=== PATIENT | male | born 1965 | race Caucasian/White ===

== ENCOUNTER → 2016-04-24 | Outpatient (CLI) | payer BC | END | disposition home or self-care (01) | LOC: RADECHMAIN 12:03 | PROVIDERS: ATTEND Nurse Practitioner Family | DX: R00.1 Bradycardia, unspecified (principal); R00.0 Tachycardia, unspecified | CPT/HCPCS: 93225; 93226 ==

== ENCOUNTER → 2016-11-29 | Outpatient (CLI) | payer BC ==
--- NOTE | 2016-11-29 08:39 | US ---
EXAMINATION TYPE: US abdomen complete DATE OF EXAM: 11/29/2016 COMPARISON: NONE CLINICAL HISTORY: 51-year-old male R10.9 Unspecified abdominal pain. TECHNIQUE: Multiple sonographic images of the abdomen are obtained. FINDINGS: Liver Length: 17.5 cm Gallbladder Wall: 0.2 cm CBD: 3.2 mm Spleen: 11.7 cm Right Kidney: 10.0 x 5.6 x 5.7 cm Left Kidney: 11.1 x 5.5 x 5.0 cm Pancreas: Suboptimal visualization of the pancreatic tail secondary to shadowing from bowel gas. Vis ualized portions show no gross abnormality. Liver: Borderline in size, echogenic, and attenuating. A 1 cm hypoechoic area along the gallbladder fossa suggestive of focal fatty sparing. Gallbladder: wnl Evidence for sonographic Ramos's sign: No CBD: wnl Spleen: wnl Right Kidney: No hydronephrosis. Left Kidney: No hydronephrosis. Upper IVC: wnl Abd Aorta: Atherosclerotic changes visualized without aneurysm. IMPRESSION: Borderline hepatomegaly with moderate hepatic steatosis. Correlate with LFTs, lipid profile, and lloyd ent risk factors.
== END | disposition home or self-care (01) ==
LOC: RADUSWWP 07:51
PROVIDERS: ATTEND Family Medicine
DX: K76.0 Fatty (change of) liver, not elsewhere classified (principal); R16.0 Hepatomegaly, not elsewhere classified
CPT/HCPCS: 76700

== ENCOUNTER → 2019-05-01 | Outpatient (CLI) | payer BC ==
--- NOTE | 2019-05-01 15:43 | MR ---
EXAMINATION TYPE: MR knee RT wo con DATE OF EXAM: 05/01/2019 COMPARISON: Plain film 04/15/2019 HISTORY: rt knee pain TECHNIQUE: Multiplanar, multisequence images of the knee is performed without IV contrast. FINDINGS: MEDIAL MENISCUS: There is slight increased signal within the posterior horn medial meniscus compatibl e some internal derangement or early degenerative change. Anterior horn medial meniscus appears vale l. LATERAL MENISCUS: Posterior horn lateral meniscus is normal. There is some increased signal within th e substance of the anterior horn lateral meniscus compatible some internal derangement or degenerativ e change. No suspicious communication with an articular surface is evident. CRUCIATE LIGAMENTS: The anterior and posterior cruciate ligaments are intact and unremarkable. COLLATERAL LIGAMENTS: The medial collateral ligament and lateral collateral ligament complex are inta ct and unremarkable. EXTENSOR MECHANISM: Visualized quadriceps and patellar tendons are intact. EFFUSION: Small suprapatellar joint effusion is present. POPLITEAL CYST: No popliteal/valladares cyst. TRICOMPARTMENT SPACES: There is some narrowing of the medial compartment joint space. CARTILAGE: There is thinning of the articular cartilage of the medial compartment joint space. Mild t hinning of the tibial plateau articular cartilage of the lateral compartment may be present. There is loss of articular cartilage patellofemoral joint space. Small amount subchondral increased signal ma y be present in the axial plane of the posterior patella. BONE MARROW SIGNAL: No focal abnormal marrow signal is appreciated. OTHER: No additional significant abnormality is appreciated. IMPRESSION: 1. Mild Osteoarthritic degenerative change medial compartment right knee. 2. Mild to Moderate osteoarthritic degenerative change patellofemoral joint space. 3. Small joint effusion. 4. Mild degenerative change or internal derangement anterior horn lateral meniscus and posterior horn medial meniscus. 5. Osseous signal appears normal without contusion
== END | disposition home or self-care (01) ==
LOC: RADMRIMAIN 14:48
PROVIDERS: ATTEND Orthopaedic Surgery
DX: M17.11 Unilateral primary osteoarthritis, right knee (principal)

== ENCOUNTER → 2021-07-07 | Outpatient (CLI) | payer OTHER ==
--- NOTE | 2021-07-07 11:59 | MR ---
EXAMINATION TYPE: MR knee RT wo con DATE OF EXAM: 07/07/2021 COMPARISON: 05/01/2019 HISTORY: M25.561 Pain in right knee TECHNIQUE: Multiplanar, multisequence imaging of the right knee is performed without IV contrast. FINDINGS: MEDIAL MENISCUS: Anterior and posterior horns are intact without tear. LATERAL MENISCUS: Anterior and posterior horns are intact without tear. CRUCIATE LIGAMENTS: The anterior and posterior cruciate ligaments are intact and unremarkable. COLLATERAL LIGAMENTS: The medial collateral ligament and lateral collateral ligament complex are inta ct and unremarkable. EXTENSOR MECHANISM: Visualized quadriceps and patellar tendons are intact. EFFUSION: Small joint effusion noted. POPLITEAL CYST: Mccormack's cyst noted measuring 2.8 cm in craniocaudal dimension. TRICOMPARTMENT SPACES: Mild narrowing patellofemoral joint space and medial tibiofemoral joint space. CARTILAGE: Intact BONE MARROW SIGNAL: No focal abnormal marrow signal is appreciated. OTHER: Prepatellar soft tissue edema noted. IMPRESSION: 1. Mccormack's cyst has enlarged since prior study. 2. changes of osteoarthritis.
== END | disposition home or self-care (01) ==
LOC: RADMRIMAIN 11:14
PROVIDERS: ATTEND Orthopaedic Surgery
DX: M17.11 Unilateral primary osteoarthritis, right knee (principal); M71.21 Synovial cyst of popliteal space [Baker], right knee

== ENCOUNTER 2022-09-06 08:04 | Day surgery (SDC) | payer OTHER ==
[2022-09-06] MEDS ORDERED: LACTATED RINGERS 1,000 ML IV SCH (08:24)
[2022-09-06] MEDS ORDERED: LIDOCAINE 1% (10MG/ML) FOR IV START INTRADERMA PRN (08:24)
[2022-09-06 08:43] VITALS: TEMP 97.4
[2022-09-06 08:52] LABS: Glucose,Whole Blood 100 mg/dL (70-110)
[2022-09-06] MEDS ORDERED: PROPOFOL 10 MG/ML 20 ML VIAL IV ONE (09:00)
--- NOTE | 2022-09-06 09:05 | P.GSHP ---
History of Present Illness H&P Date: 09/06/22 Chief Complaint: Screening colonoscopy This a 57-year-old male presents today for screening colonoscopy. Patient states she's had some minimal rectal bleeding. His colonoscopy was about 6 years ago. Past Medical History Past Medical History: GERD/Reflux, Hyperlipidemia, Osteoarthritis (OA) Additional Past Medical History / Comment(s): intermittent bleeding with stools and lower left abd pain History of Any Multi-Drug Resistant Organisms: None Reported Past Surgical History: No Surgical Hx Reported, Orthopedic Surgery Additional Past Surgical History / Comment(s): colonoscopy,wisdom teeth screw to navicular bone of rt foot Past Anesthesia/Blood Transfusion Reactions: No Reported Reaction Additional Past Anesthesia/Blood Transfusion Reaction / Comment(s): never has had general anesthesia. NO PROBLEMS WITH MAC ANESTHESIA Smoking Status: Former smoker - Past Family History Mother Additional Family Medical History / Comment(s): heart problems,cabg Brother(s) Family Medical History: Myocardial Infarction ([place]) Additional Family Medical History / Comment(s): cardiac stents Father Family Medical History: Cancer Additional Family Medical History / Comment(s): vocal cords Medications and Allergies Home Medications Medication Instructions Recorded Confirmed Type Ibuprofen [Motrin] 200 - 400 mg PO Q6HR PRN 06/01/09/06/22 History Allergies Allergy/AdvReac Type Severity Reaction Status Date / Time No Known Allergies Allergy Verified 09/06/22 08:31 Surgical - Exam Vital Signs Temp Pulse Resp BP Pulse Ox 97.4 F L 60 16 144/73 98 09/06/22 08:42 09/06/22 08:42 09/06/22 08:42 09/06/22 08:42 09/06/22 08:42 - General well developed, well nourished, no distress - Eyes PERRL - ENT normal pinna - Neck no masses - Respiratory normal expansion - Cardiovascular Rhythm: regular - Abdomen Abdomen: soft, non tender Assessment and Plan Assessment: We'll perform screening colonoscopy.
--- NOTE | 2022-09-06 09:14 | P.OP ---
Date of Procedure: 09/06/22 Preoperative Diagnosis: Screening colonoscopy Postoperative Diagnosis: Right colon polyp Mild diverticulosis Procedure(s) Performed: Colonoscopy Anesthesia: MAC Surgeon: Alin Ramirez Pathology: other (Right colon polyp) Condition: stable Disposition: PACU Description of Procedure: The patient's placed on the endoscopy table in the lateral position. He received IV sedation. Digital rectal exam was performed. This revealed no abnormalities. The flexible colonoscope was then placed patient anus and passed throughout valve was visualized. The cecum appeared normal. In the right colon there was a small sessile polyp. This removed with the cold forcep. The remainder the ascending colon and transverse colon appeared normal. In the descending and sigmoid colon there were mild diverticular changes. Scope was then brought back the rectum all. Open was then withdrawn from the patient.
--- NOTE | 2022-09-06 09:16 | P.GSHP ---
History of Present Illness H&P Date: 09/06/22 Chief Complaint: Screening colonoscopy This a 57-year-old male who presents today for screening colonoscopy. Patient denies a significant GI complaints. Past Medical History Past Medical History: GERD/Reflux, Hyperlipidemia, Osteoarthritis (OA) Additional Past Medical History / Comment(s): intermittent bleeding with stools and lower left abd pain History of Any Multi-Drug Resistant Organisms: None Reported Past Surgical History: No Surgical Hx Reported, Orthopedic Surgery Additional Past Surgical History / Comment(s): colonoscopy,wisdom teeth screw to navicular bone of rt foot Past Anesthesia/Blood Transfusion Reactions: No Reported Reaction Additional Past Anesthesia/Blood Transfusion Reaction / Comment(s): never has had general anesthesia. NO PROBLEMS WITH MAC ANESTHESIA Smoking Status: Former smoker - Past Family History Mother Additional Family Medical History / Comment(s): heart problems,cabg Brother(s) Family Medical History: Myocardial Infarction ([place]) Additional Family Medical History / Comment(s): cardiac stents Father Family Medical History: Cancer Additional Family Medical History / Comment(s): vocal cords Medications and Allergies Home Medications Medication Instructions Recorded Confirmed Type Ibuprofen [Motrin] 200 - 400 mg PO Q6HR PRN 06/01/14 09/06/22 History Allergies Allergy/AdvReac Type Severity Reaction Status Date / Time No Known Allergies Allergy Verified 09/06/22 08:31 Surgical - Exam Vital Signs Temp Pulse Resp BP Pulse Ox 97.4 F L 60 16 144/73 98 09/06/22 08:42 09/06/22 08:42 09/06/22 08:42 09/06/22 08:42 09/06/22 08:42 - General well developed, well nourished, no distress - Eyes PERRL - ENT normal pinna - Neck no masses - Cardiovascular Rhythm: regular - Abdomen Abdomen: soft, non tender Assessment and Plan Assessment: We'll perform screening colonoscopy.
[2022-09-06 09:52] VITALS: BP 126/78; PULSE 77; RESP 20
== END 2022-09-06 10:17 | disposition home or self-care (01) ==
LOC: ORWHC2ENDO 08:04
PROVIDERS: ATTEND Surgery
DX: Z12.11 Encounter for screening for malignant neoplasm of colon (principal); D12.6 Benign neoplasm of colon, unspecified; K57.30 Diverticulosis of large intestine without perforation or abscess without bleeding; E78.5 Hyperlipidemia, unspecified; K21.9 Gastro-esophageal reflux disease without esophagitis; M19.90 Unspecified osteoarthritis, unspecified site; Z87.891 Personal history of nicotine dependence; Z88.6 Allergy status to analgesic agent; Z79.899 Other long term (current) drug therapy
CPT/HCPCS: 88305; 45380; J2704

== ENCOUNTER 2023-05-02 08:24 | Day surgery (SDC) | payer OTHER ==
--- NOTE | 2023-05-02 07:04 | P.GSHP ---
History of Present Illness H&P Date: 05/02/23 CHIEF COMPLAINT: GERD HISTORY OF PRESENT ILLNESS: The patient is a 57-year-old male who presents reports gastroesophageal reflux disease. Upper endoscopy was offered for further evaluation and management. PAST MEDICAL HISTORY: Please see list. PAST SURGICAL HISTORY: Please see list. MEDICATIONS: Please see list. ALLERGIES: Please see list. SOCIAL HISTORY: No illicit drug use FAMILY HISTORY: No reports of Crohn disease or ulcerative colitis. REVIEW OF ORGAN SYSTEMS: CONSTITUTIONAL: No reports of fevers or chills. GI: Denies any blood in stools or constipation. PHYSICAL EXAM: VITAL SIGNS: Stable GENERAL: Well-developed and pleasant in no acute distress. HEENT: No scleral icterus. Extraocular movements grossly intact. Moist buccal mucosa. NECK: Supple without lymphadenopathy. CHEST: Unlabored respirations. Equal bilateral excursions. CARDIOVASCULAR: Regular rate and rhythm. Distal 2+ pulses. ABDOMEN: Soft, nondistended. MUSCULOSKELETAL: No clubbing, cyanosis, or edema. ASSESSMENT: 1. Gastroesophageal reflux disease PLAN: 1. Recommend proceeding with an upper endoscopy Past Medical History Past Medical History: GERD/Reflux, Hyperlipidemia, Osteoarthritis (OA) Additional Past Medical History / Comment(s): occasional bleeding with stools and mid abd especially if not eating regularly. umbilical hernia History of Any Multi-Drug Resistant Organisms: None Reported Past Surgical History: Orthopedic Surgery Additional Past Surgical History / Comment(s): ,colonoscopy,wisdom teeth, screw to navicular bone of rt foot Past Anesthesia/Blood Transfusion Reactions: No Reported Reaction Additional Past Anesthesia/Blood Transfusion Reaction / Comment(s): NO PROBLEMS WITH MAC ANESTHESIA Smoking Status: Former smoker - Past Family History Mother Additional Family Medical History / Comment(s): heart problems,cabg Brother(s) Family Medical History: Myocardial Infarction ([place]) Additional Family Medical History / Comment(s): cardiac stents Father Family Medical History: Cancer Additional Family Medical History / Comment(s): vocal cords Medications and Allergies Home Medications Medication Instructions Recorded Confirmed Type Ibuprofen [Motrin] 200 - 400 mg PO Q6HR PRN 06/01/14 04/30/23 History Rosuvastatin Calcium 20 mg PO HS 04/30/23 04/30/23 History Unk Multi Vitamin 1 tab PO DAILY 04/30/23 04/30/23 History Allergies Allergy/AdvReac Type Severity Reaction Status Date / Time No Known Allergies Allergy Verified 04/30/23 13:27
[~2023-05-02 08:24] MED LIST: LIDOCAINE 1% (10MG/ML) FOR IV START INTRADERMA PRN
[2023-05-02 08:54] VITALS: TEMP 97.3
[2023-05-02] MEDS: LACTATED RINGERS 1,000 ML IV SCH (08:55)
[2023-05-02] MEDS ORDERED: PROPOFOL 10 MG/ML 20 ML VIAL IV ONE (09:45)
[2023-05-02] MEDS ORDERED: LIDOCAINE 1% INJ 10MG/ML (20 ML MDV) ONE (09:45)
--- NOTE | 2023-05-02 10:23 | P.PCN ---
Date of Procedure: 05/02/23 Description of Procedure: PREOPERATIVE DIAGNOSIS: Gastroesophageal reflux disease. POSTOPERATIVE DIAGNOSIS: Gastroesophageal reflux disease. Gastritis. Gastric polyps Erosive esophagitis OPERATION: Esophagogastroduodenoscopy with biopsies along esophagus antrum and duodenum SURGEON: Cathy Barnes MD ANESTHESIA: MAC. INDICATIONS: The patient is a 45-year-old female who presents with reflux disease. Benefits and risks of the procedure were described. Informed consent was obtained. DESCRIPTION: The patient was brought into the endoscopy suite and laid in the left lateral decubitus position. An Olympus gastroscope was passed along the posterior oropharynx down to the distal esophagus where the squamocolumnar junction was encountered at 40 cm from the incisors. The stomach was entered and bile reflux was found. Additional findings are listed below. Biopsies with cold forceps were obtained of the antrum. The first through third portion of the duodenum was examined. Retroflexion of the scope confirmed Hill grade 2 lower esophageal valve. The squamocolumnar junction demonstrated LA grade B erosive esophagitis. The stomach was desufflated. The patient tolerated the procedure well. FINDINGS: Squamocolumnar junction 40 cm from the incisors. Diaphragmatic hiatus at 40 cm. Hill grade 2 lower esophageal valve LA grade B erosive esophagitis with moderate bile reflux along the esophagus Biopsies obtained of the duodenum. Chronic gastritis with biopsies obtained. RECOMMENDATIONS: Upper endoscopy as needed. Plan - Discharge Summary Discharge Rx Participant: No New Discharge Prescriptions: No Action Ibuprofen [Motrin] 200 - 400 mg PO Q6HR PRN PRN Reason: Pain Rosuvastatin Calcium 20 mg PO HS Unk Multi Vitamin 1 tab PO DAILY Discharge Medication List Ibuprofen [Motrin] 200 - 400 mg PO Q6HR PRN 06/01/14 [History] Rosuvastatin Calcium 20 mg PO HS 04/30/23 [History] Unk Multi Vitamin 1 tab PO DAILY 04/30/23 [History]
[2023-05-02 10:31] VITALS: BP 122/84
[2023-05-02 11:04] VITALS: PULSE 78; RESP 18
== END 2023-05-02 11:02 | disposition home or self-care (01) ==
LOC: ORWHC2ENDO 08:24
PROVIDERS: ATTEND Surgery Plastic and Reconstructive Surgery
DX: K21.00 Gastro-esophageal reflux disease with esophagitis, without bleeding (principal); K31.7 Polyp of stomach and duodenum; K29.50 Unspecified chronic gastritis without bleeding; K22.10 Ulcer of esophagus without bleeding; M19.90 Unspecified osteoarthritis, unspecified site; E78.5 Hyperlipidemia, unspecified; Z87.891 Personal history of nicotine dependence; Z82.49 Family history of ischemic heart disease and other diseases of the circulatory system; Z79.899 Other long term (current) drug therapy
CPT/HCPCS: 88305; 43239; J2001; J2704

== ENCOUNTER → 2023-05-03 | Outpatient (CLI) | payer OTHER ==
--- NOTE | 2023-05-03 17:24 | US ---
EXAMINATION TYPE: US thyroid st tissue head/neck DATE OF EXAM: 05/03/2023 COMPARISON: NONE CLINICAL INDICATION: Male, 57 years old with history of R22.1 LOCALIZED SWELLING, MASS AND LUMP, NECK ; Lump x 1 year- no pain or change in size, no injury, no history cancer/chemo/radiation TECHNIQUE: FINDINGS: Hyperechoic area at AOC = 2.9 x 1.1 x 2.8 cm There is a hyperechoic oval in the region of the palpable abnormality could be a prominent lymph node . Consider CT Additional evaluation. The typical hilum is not identified. Other etiologies should be considered. IMPRESSION: 1. Suspected enlarged subcutaneous lymph node. Other etiologies not excluded. CT recommended for zeeshan tional evaluation.
== END | disposition home or self-care (01) ==
LOC: RADUSWWP 08:29
PROVIDERS: ATTEND Surgery Plastic and Reconstructive Surgery
DX: R22.1 Localized swelling, mass and lump, neck (principal)
CPT/HCPCS: 76536

== ENCOUNTER 2023-05-09 13:09 | Observation (INO) | payer OTHER ==
[2023-05-03 10:55] VITALS: BMI 32.3
[~2023-05-09 13:09] MED LIST changes: +HYDROmorphone 0.5 MG/0.5 ML SYRINGE IVP PRN; -LIDOCAINE 1% (10MG/ML) FOR IV START INTRADERMA PRN; +ONDANSETRON 4 MG/2 ML VIAL IVP PRN
--- NOTE | 2023-05-09 13:24 | P.GSHP ---
History of Present Illness H&P Date: 05/09/23 CHIEF COMPLAINT: Ventral hernia HISTORY OF PRESENT ILLNESS: The patient is a 57-year-old male presents with a history of swelling and pain along the abdomen from a hernia of the abdomen. Symptoms have been present for over 6 months. Now he presents for surgical intervention. PAST MEDICAL HISTORY: Please see list. PAST SURGICAL HISTORY: Please see list. MEDICATIONS: Please see list. ALLERGIES: Please see list. SOCIAL HISTORY: No illicit drug use FAMILY HISTORY: No reports of Crohn disease or ulcerative colitis. REVIEW OF ORGAN SYSTEMS: CONSTITUTIONAL: Denies any fever or chills. Denies recent weight loss or weight gain. HEENT: Denies any trouble with vision, hearing or nosebleeds. No difficulty swallowing. LYMPHATIC: The patient denies any lumps and bumps around the neck. ENDOCRINE: Denies any thyroid disorders. Denies any blood sugar glucose intolerance. RESPIRATORY: Denies pneumonia. Denies any troubles with breathing or dyspnea on exertion. CARDIOVASCULAR: Denies any chest pain, palpitations, or recent heart attacks. GASTROINTESTINAL: Denies heart burn, constipation or bright red blood per rectum. GENITOURINARY: Denies any blood in urine or increased urinary frequency. MUSCULOSKELETAL: Denies any back pain, stiffness, joint arthritis. NEUROLOGIC: Denies any numbness or tingling along the distal extremities. No seizure disorders or headaches. PSYCHIATRIC: Denies depression or suidical ideation. HEMATOLOGIC: Denies any abnormal bleeding or bruising. BREASTS: Denies any breast lumps, pain or nipple discharge. PHYSICAL EXAM: GENERAL: Well-developed pleasant male in no acute distress. HEENT: No scleral icterus. Extraocular movements grossly intact. Moist buccal mucosa. NECK: Supple without lymphadenopathy. CHEST: Unlabored respirations. Equal bilateral excursions. CARDIOVASCULAR: Regular rate and rhythm. Distal 2+ pulses. ABDOMEN: Soft, nondistended. Palpable defect of the abdomen. No peritoneal signs. MUSCULOSKELETAL: No clubbing, cyanosis, or edema. SKIN: Well perfused. PSYCH: Alert and oriented to self, place and time ASSESSMENT: 1. Ventral hernia PLAN: 1. Recommend proceeding with robotic ventral hernia repair with mesh. 2. Benefits and risks of surgical intervention was discussed including possibility of open technique. 3. DVT prophylaxis. 4. Antibiotic prophylaxis. 5. Non narcotic pain management including abdominal wall block described 6. Blood sugar glucose described. 7. Weight loss management described. Past Medical History Past Medical History: GERD/Reflux, Hyperlipidemia, Osteoarthritis (OA) Additional Past Medical History / Comment(s): occasional bleeding with stools and mid abd especially if not eating regularly. umbilical hernia History of Any Multi-Drug Resistant Organisms: None Reported Past Surgical History: Orthopedic Surgery Additional Past Surgical History / Comment(s): ,colonoscopy,wisdom teeth, screw to navicular bone of rt foot Past Anesthesia/Blood Transfusion Reactions: No Reported Reaction Additional Past Anesthesia/Blood Transfusion Reaction / Comment(s): NO PROBLEMS WITH MAC ANESTHESIA Past Alcohol Use History: Daily Additional Past Alcohol Use History / Comment(s): quit smoking 1998, smoked for approx 10yrs. 2 drinks per day, none lately - Past Family History Mother Additional Family Medical History / Comment(s): heart problems,cabg Brother(s) Family Medical History: Myocardial Infarction ([place]) Additional Family Medical History / Comment(s): cardiac stents Father Family Medical History: Cancer Additional Family Medical History / Comment(s): vocal cords Medications and Allergies Home Medications Medication Instructions Recorded Confirmed Type Ibuprofen [Motrin] 200 - 400 mg PO Q6HR PRN 06/01/14 05/03/23 History Rosuvastatin Calcium 20 mg PO HS 04/30/23 05/03/23 History Omeprazole [PriLOSEC] 40 mg PO DAILY #14 cap 05/02/23 05/03/23 Rx Multivit,Calc,Min/FA/K1/Lycop 1 each PO DAILY 05/03/23 05/03/23 History [One-A-Day Men's Complete Tab] Allergies Allergy/AdvReac Type Severity Reaction Status Date / Time No Known Allergies Allergy Verified 05/03/23 10:19
[2023-05-09] MEDS: LACTATED RINGERS 1,000 ML IV SCH (14:18)
[2023-05-09] MEDS: ACETAMINOPHEN TAB 500 MG TAB PO PRN (14:26)
[2023-05-09] MEDS: MELOXICAM 7.5 MG TAB PO PRN (14:27)
[2023-05-09] MEDS: TAMSULOSIN 0.4 MG CAP.ER.24H PO STA (14:27)
[2023-05-09] MEDS: DEXAMETHASONE SOD PHOSPHATE 4 MG/ML 1 ML VIAL IV ONE (14:52)
[2023-05-09] MEDS: ONDANSETRON 4 MG/2 ML VIAL IVP ONE (14:52)
[2023-05-09 15:05] LABS: ALT 30 U/L (4-49); AST 38 U/L (17-59); African American GFR (CKD) >90 (>60 ml/min/1.73 sqM); Albumin 4.7 g/dL (3.5-5.0); Alkaline Phosphatase 71 U/L (38-126); Anion Gap 12 mmol/L; Blood Urea Nitrogen 22 mg/dL (9-20); Calcium 9.6 mg/dL (8.4-10.2); Carbon Dioxide 21 mmol/L (22-30); Chloride 110 mmol/L (98-107); Glucose 86 mg/dL (74-99); Non-African American GFR(CKD) >90 (>60 ml/min/1.73 sqM); Sodium 143 mmol/L (137-145); Total Bilirubin 0.9 mg/dL (0.2-1.3); Total Protein 7.6 g/dL (6.3-8.2)
[2023-05-09 15:06] LABS: Potassium 4.6 mmol/L (3.5-5.1)
[2023-05-09] MEDS: MIDAZOLAM 2 MG/2 ML VIAL IVP ONE (16:33)
[2023-05-09] MEDS: fentaNYL (PF) 50 MCG/ML 2 ML AMP IVP ONE (16:33)
[2023-05-09] MEDS: HEPARIN SODIUM,PORCINE 5,000 UNIT/ML 1 ML VIAL SQ PRN (16:48)
[2023-05-09] MEDS ORDERED: SUCCINYLCHOLINE CHLORIDE 200 MG/10 ML VIAL IV ONE (17:00)
[2023-05-09] MEDS ORDERED: ROPIVACAINE 5 MG/ML 30 ML VIAL ONE (17:00)
[2023-05-09] MEDS ORDERED: ROCURONIUM 10 MG/ML (5 ML VIAL) IV ONE (17:00)
[2023-05-09] MEDS ORDERED: LIDOCAINE 1% INJ 10MG/ML (20 ML MDV) ONE (17:00)
[2023-05-09] MEDS ORDERED: fentaNYL (PF) 50 MCG/ML 2 ML AMP ONE (17:00)
[2023-05-09] MEDS ORDERED: DEXAMETHASONE SOD PHOSPHATE 4 MG/ML 1 ML VIAL ONE (17:00)
[2023-05-09] MEDS ORDERED: GLYCOPYRROLATE 0.2 MG/ML 2 ML VIAL ONE (17:00)
[2023-05-09] MEDS ORDERED: NEOSTIGMINE 1 MG/ML 10 ML VIAL ONE (17:00)
[2023-05-09] MEDS ORDERED: PROPOFOL 10 MG/ML 20 ML VIAL IV ONE (17:00)
[2023-05-09] MEDS ORDERED: SODIUM CHLORIDE 0.9% (PF) 10 ML VIAL ONE (17:00)
--- NOTE | 2023-05-09 17:16 | P.ANPRN ---
Procedure Note - Anesthesia - Nerve Block Performed Bilateral Erector Spinae Single Time Out Performed: Yes Date of Procedure: 05/09/23 Procedure Start Time: 16:33 Procedure Stop Time: 16:38 Location of Patient: PreOp Indication: Acute Post-Operative Pain, Requested by Surgeon Sedation Type: Sedate with meaningful contact maintained Preparation: Sterile Prep Position: Prone Needle Types: Pajunk Needle Gauge: 21 Ultrasound used to visualize needle placement: Yes Ultrasound used to observe medication spread: Yes Injectate: 0.5% Ropivacaine (see comment for volume) (Ropivacaine 0.5% 15 ml + 15 ml NS + 4 mg Dexamethasone per side) Blood Aspirated: No Pain Paresthesia on Injection Noted: No Resistance on Injection: Normal Image Stored and Saved: Yes Events: Uneventful and Well Tolerated
[2023-05-09] MEDS: LIDOCAINE 2%-EPI 1:100,000 20 ML VIAL SQ ONE (17:27)
--- NOTE | 2023-05-09 18:15 | P.OP ---
Date of Procedure: 05/09/23 Description of Procedure: SURGEON: CATHY BARNES MD PREOPERATIVE DIAGNOSES: 1. Initial incarcerated umbilical hernia, 3-cm 2. Gastroesophageal reflux disease 3. Obesity due to excess calories, BMI 32.7 4. Hyperlipidemia POSTOPERATIVE DIAGNOSES: 1. Initial incarcerated umbilical hernia, 3-cm 2. Gastroesophageal reflux disease 3. Obesity due to excess calories, BMI 32.7 4. Hyperlipidemia OPERATION: 1. Robotic-assisted da Naun Xi laparoscopic repair of initial incarcerated umb ilical hernia with mesh, ventralight ST mesh 11.4 cm Anesthesia: GETA, regional, local Estimated Blood Loss (ml): 5 Pathology: 1. Incarcerated umbilical hernia defect COMPLICATIONS: None. Operative Findings: 1. Umbilical hernia defect 1-cm 2. Fascia repaired using #1 V-lock suture INDICATIONS: The patient is a 57-year-old male who presents with a personal history of multiple abdominal wall hernias. Surgical intervention with laparoscopic versus robotic and open techniques were reviewed. Placement of mesh was also reviewed. Benefits and risks were thoroughly described. Informed conse nt was obtained. DESCRIPTION OF PROCEDURE: The patient was brought into the operating room and laid in supine position. After general induction, the abdomen had been prepped and draped in standard sterile fashion. Ioban draping was also placed. Prior to incision, a timeout protocol was confirmed with surgical team regarding the patient's name including procedures to be performed. The robot was primed prior to the procedure. A field block using local anesthetic was placed along hernia site including the proposed port sites. Initial incision was made with an #11 blade along the left upper quadrant. A 0 degree 5 mm laparoscopic trocar entry was performed and insufflated. Three 8 mm ports were placed along the left lateral abdominal wall under direct localization after exchanging the 5-mm for an 8 mm port. Placements of the ports were 15 cm from the target anatomy and 10 cm apart. An accessory 12 mm port was placed at the left upper quadrant for exchange of mesh including sutures. [employer] robot was previously primed, prepped and draped then docked from the right side of the patient onto the left side of the patient. I then sat at the robot [employer] console where working arms of the robot including Bovie cautery connected to robotic scissors, needle fleet driver, and graspers placed by the assistant manager retail. Incarcerated preperitoneal fascial defect was found: Umbilical hernia defect 1 x 1 cm. The incarcerated contents were reduced as the peritoneal fat was cleaned from the abdominal wall. Next, hemostasis was checked with cautery. The hernia defects were oversewn using #1 nonabsorbable V-lock suture with fascial imbrication x 3. Mesh repair was avoided due to the very small defect. A final endoscopic imaging was obtained. All instruments and pneumoperitoneum were evacuated from the abdominal cavity. The da Naun Xi robot was undocked from the patient. I re-scrubbed into the case for closure of incisions. The fascia of the 12-mm port was probed and less than 8-mm in size. The incisions were reapproximated using 4-0 Monocryl in an interrupted subcuticular fashion. Liquid glue was applied to the skin after cleansing the skin with normal saline and dilute hydrogen peroxide. An abdominal binder was placed. An umbilical dressing using cotton balls and Tegaderm was placed prior. At the end of the procedure, needle, sponge, and instrument count had been verified correct by surgical scrub technologist. The patient was taken to the postanesthesia care unit in stable condition. Plan - Discharge Summary Discharge Rx Participant: No New Discharge Prescriptions: Continue Rosuvastatin Calcium 20 mg PO HS Omeprazole [PriLOSEC] 40 mg PO DAILY #14 cap Multivit,Calc,Min/FA/K1/Lycop [One-A-Day Men's Complete Tab] 1 each PO DAILY Discontinued Ibuprofen [Motrin] 200 - 400 mg PO Q6HR PRN PRN Reason: Pain Discharge Medication List Rosuvastatin Calcium 20 mg PO HS 04/30/23 [History] Omeprazole [PriLOSEC] 40 mg PO DAILY #14 cap 05/02/23 [Rx] Multivit,Calc,Min/FA/K1/Lycop [One-A-Day Men's Complete Tab] 1 each PO DAILY 05/03/23 [History] Follow up Appointment(s)/Referral(s): Cathy Barnes MD [STAFF PHYSICIAN] - 05/14/23 11:00 am Patient Instructions/Handouts: *Surgery [facility] - (Anesthesia) Discharge Instructions Outpatient Surgery Discharge Disposition: HOME SELF-CARE
[2023-05-09] MEDS ORDERED: HYDROmorphone 1 MG/ML 1 ML SYRINGE IVP PRN (19:23)
[2023-05-09] MEDS: SODIUM CHLORIDE 0.9% 1,000 ML IV ONE (19:30)
[2023-05-09] MEDS: KETOROLAC 15 MG/ML 1 ML VIAL IVP PRN (21:01)
[2023-05-09] MEDS: SODIUM CHLORIDE 0.9% 1,000 ML IV SCH (22:07)
--- NOTE | 2023-05-10 08:16 | XR ---
EXAMINATION TYPE: XR chest 1V portable DATE OF EXAM: 05/10/2023 HISTORY: Shortness of breath. COMPARISON: None. TECHNIQUE: Single view of the chest is submitted. FINDINGS: Demonstrated are scattered senescent parenchymal change. Left basilar linear atelectasis or developing infiltrate. Follow-up advised. The heart is stable. Hilar and mediastinal structures are within normal limits. Degenerative changes are seen of the dorsal spine. IMPRESSION: 1. Left basilar linear atelectasis or developing infiltrate. Follow-up advised.
[2023-05-10 08:20] VITALS: RESP 20
[2023-05-10] MEDS: IPRATROPIUM-ALBUTEROL 3 ML NEB INHALATION SCH (09:58)
--- NOTE | 2023-05-10 12:04 | CT ---
Exam: CT Angiography of the Chest. Date: 05/10/2023. Comparison: None History: Postop ventral hernia. Technique: CT examination of the chest was performed following the intravenous administration of 180 mL of Isovue 300. The bolus was given twice as the bolus did not trigger the scan the first time. CT dose lowering techniques were used, to include: automated exposure control, adjustment for patient si ze, and/or use of iterative reconstruction. FINDINGS: Mediastinum and [place]: There is no axillary, mediastinal or hilar lymphadenopathy. Pleural and Pericardial spaces: There are no pleural or pericardial effusions. Upper Abdomen: There is severe diffuse decreased attenuation of the liver compatible fatty liver infi ltration. Small right renal cyst is seen. The visualized upper abdomen otherwise appears unremarkable . Cardiovascular: The thoracic aorta is normal in size without evidence of aneurysm or dissection. Pulmonary Artery: There are no filling defects in the pulmonary arteries. Lung Parenchyma and Airways: There are some bands of opacity lower lobes bilaterally which are favore d to be atelectasis. Pneumonia would be difficult to exclude. The lungs otherwise appear clear. Bones: No fracture or aggressive osseous lesion. IMPRESSION: 1. No evidence of pulmonary embolism. 2. No evidence of thoracic aortic aneurysm or dissection. 3. Probable atelectatic changes in the lower lobes bilaterally with pneumonia also a possibility. 4. Hepatic steatosis.
--- NOTE | 2023-05-10 12:38 | P.CNPUL ---
History of Present Illness Consult date: 05/10/23 Requesting physician: Cathy Barnes Reason for consult: hypoxemia Chief complaint: Ventral hernia History of present illness: This is a very pleasant 57-year-old male patient with a known history of hypertension, gastroesophageal reflux disease, osteoarthritis, ventral hernia. He was brought in yesterday electively and had undergone a robotic assisted incarcerated umbilical hernia repair with mesh. He tolerated the procedure well however he remained somewhat hypoxic and we are consulted for the same. He is seen today in consultation on the regular medical floor. He is sitting up in bed. Awake and alert in no acute distress. He is maintaining O2 saturations at 93, 94% on 2 L/min per nasal cannula. He has been afebrile. Hemodynamically stable. He has no prior history of pulmonary issues. No asthma. Quit smoking many years ago. No inhalers in the outpatient setting. Sodium 143. Potassium 4.6. Bicarb 21. BUN 22. Creatinine 0.72. Chest x-ray revealed some left bas ilar linear atelectasis. Review of Systems REVIEW OF SYSTEMS: CONSTITUTIONAL: Denies any recent significant weight loss or weight gain. EYES: Denies change in vision. EARS, NOSE, MOUTH, THROAT: Denies headaches, denies sore throat. CARDIOVASCULAR: Denies chest pain, palpitations or syncopal episodes. RESPIRATORY: Denies shortness of breath, cough, congestion or hemoptysis. GASTROINTESTINAL: Positive for abdominal hernia GENITOURINARY: Denies hematuria, denies infections. MUSKULOSKELETAL: Denies pain, denies swelling. INTEGUMENTARY: Denies rash, denies eczema. NEUROLOGICAL: Denies recent memory loss, no recent seizure activity. PSYCHIATRIC: Denies anxiety, denies depression. HEMATOLOGIC/LYMPHATIC: Denies anemia, denies enlarged lymph nodes. Past Medical History Past Medical History: GERD/Reflux, Hyperlipidemia, Osteoarthritis (OA) Additional Past Medical History / Comment(s): occasional bleeding with stools and mid abd especially if not eating regularly. umbilical hernia History of Any Multi-Drug Resistant Organisms: None Reported Past Surgical History: Orthopedic Surgery Additional Past Surgical History / Comment(s): ,colonoscopy,wisdom teeth, screw to navicular bone of rt foot, umbilical hernia repair Past Anesthesia/Blood Transfusion Reactions: No Reported Reaction Additional Past Anesthesia/Blood Transfusion Reaction / Comment(s): Low SpO2 after surgery required overnight stay and high flow oxygen Past Psychological History: No Psychological Hx Reported Smoking Status: Former smoker Past Alcohol Use History: Daily Additional Past Alcohol Use History / Comment(s): quit smoking 1998, smoked for approx 10yrs. 3-8 drinks 3 times a week. Last drink was 05/08/23 Past Drug Use History: None Reported - Past Family History Mother Additional Family Medical History / Comment(s): heart problems,cabg Brother(s) Family Medical History: Myocardial Infarction ([place]) Additional Family Medical History / Comment(s): cardiac stents Father Family Medical History: Cancer Additional Family Medical History / Comment(s): vocal cords Medications and Allergies Home Medications Medication Instructions Recorded Confirmed Type Rosuvastatin Calcium 20 mg PO HS 04/30/23 05/09/23 History Omeprazole [PriLOSEC] 40 mg PO DAILY #14 cap 05/02/23 05/09/23 Rx Multivit,Calc,Min/FA/K1/Lycop 1 each PO DAILY 05/03/23 05/09/23 History [One-A-Day Men's Complete Tab] Acetaminophen Tab [Tylenol Tab] 1,000 mg PO Q6HR PRN #30 tablet 05/09/23 Rx Cyclobenzaprine [Flexeril] 10 mg PO TID #30 tab 05/09/23 Rx Ibuprofen [Motrin] 600 mg PO Q8HR PRN #30 tab 05/09/23 Rx Simethicone [Gas-X] 125 mg PO AC-TID PRN #20 capsule 05/09/23 Rx Allergies Allergy/AdvReac Type Severity Reaction Status Date / Time No Known Allergies Allergy Verified 05/09/23 14:11 Physical Exam Vitals: Vital Signs Temp Pulse Pulse Pulse Pulse Pulse Pulse 05/10/23 11:54 74 05/10/23 11:42 77 87 05/10/23 09:56 05/10/23 08:22 05/10/23 07:53 05/10/23 07:30 05/10/23 07:27 97.5 F L 67 05/10/23 02:00 98.7 F 90 05/09/23 21:55 77 05/09/23 21:40 94 05/09/23 21:25 91 05/09/23 21:13 05/09/23 21:10 100 05/09/23 20:55 89 05/09/23 20:40 98 05/09/23 20:30 05/09/23 20:25 85 05/09/23 20:10 98.7 F 95 05/09/23 19:45 86 05/09/23 19:30 91 05/09/23 19:12 86 05/09/23 18:57 77 05/09/23 18:42 74 05/09/23 18:27 75 05/09/23 18:12 97.4 F L 95 05/09/23 16:47 75 05/09/23 14:23 98.0 F 65 Pulse Pulse Resp BP BP Pulse Ox Pulse Ox 05/10/23 11:54 05/10/23 11:42 79 74 93 L 05/10/23 09:56 94 L 05/10/23 08:22 93 L 05/10/23 07:53 93 L 05/10/23 07:30 93 L 05/10/23 07:27 20 136/84 91 L 05/10/23 02:00 16 127/65 92 L 05/09/23 21:55 127/65 92 L 05/09/23 21:40 128/67 91 L 05/09/23 21:25 129/75 89 L 05/09/23 21:13 18 95 05/09/23 21:10 134/78 88 L 05/09/23 20:55 133/84 89 L 05/09/23 20:40 136/84 85 L 05/09/23 20:30 16 05/09/23 20:25 148/84 92 L 05/09/23 20:10 18 148/84 92 L 05/09/23 19:45 18 123/67 91 L 05/09/23 19:30 18 117/69 92 L 05/09/23 19:12 18 142/69 90 L 05/09/23 18:57 18 130/66 92 L 05/09/23 18:42 18 127/62 93 L 05/09/23 18:27 18 142/70 92 L 05/09/23 18:12 15 162/75 94 L 05/09/23 16:47 16 149/88 95 05/09/23 14:23 18 182/86 94 L Pulse Ox Pulse Ox Pulse Ox 05/10/23 11:54 05/10/23 11:42 91 L 92 L 90 L 05/10/23 09:56 05/10/23 08:22 05/10/23 07:53 05/10/23 07:30 05/10/23 07:27 05/10/23 02:00 05/09/23 21:55 05/09/23 21:40 05/09/23 21:25 05/09/23 21:13 05/09/23 21:10 05/09/23 20:55 05/09/23 20:40 05/09/23 20:30 05/09/23 20:25 05/09/23 20:10 05/09/23 19:45 05/09/23 19:30 05/09/23 19:12 05/09/23 18:57 05/09/23 18:42 05/09/23 18:27 05/09/23 18:12 05/09/23 16:47 05/09/23 14:23 Intake and Output 05/09/23 05/10/23 05/10/23 22:59 06:59 14:59 Intake Total 1350 Output Total 10 Balance 1340 Intake: IV 750 Oral 600 Output: Estimated Blood Loss 10 Other: Voiding Method Toilet # Voids 3 Weight 103.3 kg GENERAL EXAM: Alert, very pleasant 57-year-old male, on 2 L nasal cannula, comfortable in no apparent distress. HEAD: Normocephalic. EYES: Normal reaction of pupils, equal size. NOSE: Clear with pink turbinates. THROAT: No erythema or exudates. NECK: No masses, no JVD. CHEST: No chest wall deformity. LUNGS: Equal air entry with no crackles, wheeze, rhonchi or dullness. CVS: S1 and S2 normal with no audible murmur, regular rhythm. ABDOMEN: Abdominal binder in place, normal bowel sounds, no guarding or rigidity. SPINE: No scoliosis or deformity SKIN: No rashes CENTRAL NERVOUS SYSTEM: No focal deficits, tone is normal in all 4 extremities. EXTREMITIES: There is no peripheral edema. No clubbing, no cyanosis. Peripheral pulses are intact. Results - Laboratory Findings CBC and BMP: 05/09/23 14:47 Abnormal lab findings: Abnormal Labs 05/09/23 14:47 Chloride 110 H Carbon Dioxide 21 L BUN 22 H - Diagnostic Findings Chest x-ray: image reviewed Assessment and Plan Assessment: Incarcerated umbilical hernia, status post robotic assisted repair with mesh. Postoperative day #1 Acute hypoxic respiratory failure postoperatively, suspect atelectasis History of hypertension History of gastroesophageal reflux disease Former smoker Plan: The patient was seen and evaluated Chest x-ray, labs and medications reviewed Add DuoNeb inhalations Add an incentive spirometer Obtain a CT angiogram to rule out pulmonary embolism Increase his activity as tolerated Titrate down the FiO2 as tolerated We will continue to follow and make further recommendations based on his cli nical status I have personally seen and examined the patient, performed the documentation and the assessment and plan as written. Number of minutes spent on the visit: 20.
--- NOTE | 2023-05-10 13:57 | P.DS ---
Providers Date of admission: 05/09/23 19:15 Expected date of discharge: 05/10/23 Attending physician: Cathy Barnes Consults: 05/09/23 13:25 Consult Physician Routine Consulting Provider: [facility] Consult Reason/Comments: Regional block Do you want consulting provider notified?: Yes 05/09/23 19:16 Consult Physician Routine Consulting Provider: Cb Ochoa Consult Reason/Comments: medical management Do you want consulting provider notified?: Yes 05/09/23 19:18 Consult Physician Routine Consulting Provider: Clarence Sánchez Consult Reason/Comments: low oxygen levels Do you want consulting provider notified?: Yes Primary care physician: Cb Ochoa Hospital Course: Discharge diagnosis 1. Initial incarcerated umbilical hernia, 3-cm 2. Gastroesophageal reflux disease 3. Obesity due to excess calories, BMI 32.7 4. Hyperlipidemia 5. Atelectasis Hospital course The patient is a 57-year-old male who presents with a personal history of mul tiple abdominal wall hernias. Patient is status post Robotic-assisted da Naun Xi laparoscopic repair of initial incarcerated umbilical hernia with mesh. Patient was having shortness of breath and was hypoxic. CTA was negative for PE. Patient is currently on room air. She he was seen evaluated by pulmonary service. They have cleared him for discharge. Patient's pain is controlled. He is tolerating diet. He has been up and ambulating. He is afebrile. Denies any difficulty urinating. He is stable for discharge. Physician Director Of Leadership Development note has been reviewed by physician. Signing provider agrees with the documented findings, assessment, and plan of care. Patient Condition at Discharge: Stable Plan - Discharge Summary Discharge Rx Participant: No New Discharge Prescriptions: New Simethicone [Gas-X] 125 mg PO AC-TID PRN #20 capsule PRN Reason: Pain Ibuprofen [Motrin] 600 mg PO Q8HR PRN #30 tab PRN Reason: Pain Acetaminophen Tab [Tylenol Tab] 1,000 mg PO Q6HR PRN #30 tablet PRN Reason: Pain Cyclobenzaprine [Flexeril] 10 mg PO TID #30 tab Continue Rosuvastatin Calcium 20 mg PO HS Omeprazole [PriLOSEC] 40 mg PO DAILY #14 cap Multivit,Calc,Min/FA/K1/Lycop [One-A-Day Men's Complete Tab] 1 each PO DAILY Discontinued Ibuprofen [Motrin] 200 - 400 mg PO Q6HR PRN PRN Reason: Pain Discharge Medication List Rosuvastatin Calcium 20 mg PO HS 04/30/23 [History] Omeprazole [PriLOSEC] 40 mg PO DAILY #14 cap 05/02/23 [Rx] Multivit,Calc,Min/FA/K1/Lycop [One-A-Day Men's Complete Tab] 1 each PO DAILY 05/03/23 [History] Acetaminophen Tab [Tylenol Tab] 1,000 mg PO Q6HR PRN #30 tablet 05/09/23 [Rx] Cyclobenzaprine [Flexeril] 10 mg PO TID #30 tab 05/09/23 [Rx] Ibuprofen [Motrin] 600 mg PO Q8HR PRN #30 tab 05/09/23 [Rx] Simethicone [Gas-X] 125 mg PO AC-TID PRN #20 capsule 05/09/23 [Rx] Follow up Appointment(s)/Referral(s): Clarence Sánchez MD [STAFF PHYSICIAN] - 1 Week Cathy Barnes MD [STAFF PHYSICIAN] - 05/14/23 11:00 am Patient Instructions/Handouts: *Surgery [facility] - (Anesthesia) Discharge Instructions Outpatient Surgery, Laparoscopic Herniorrhaphy (IP), Abdominal Binder (DC), Umbilical Hernia Repair (DC) Activity/Diet/Wound Care/Special Instructions: DO NOT REMOVE DRESSING Using antibacterial soap. No lifting over 4 pounds 4 weeks, June 09, 2023July shower. No bathtub soaks, swimming for 2 weeks, May 22 Wear abdominal binder daily for comfort except for showering. Use ice along incisions for today to prevent swelling. Take tylenol, aleve/ibuprofen, simethicone scheduled for 3 days for best pain relief
--- NOTE | 2023-05-10 14:00 | P.CONS ---
History of Present Illness - Reason for Consult Consult date: 05/10/23 Medical management, Dr. Ochoa patient, incarcerated hernia repair - History of Present Illness This is a pleasant 57-year-old male who follows with Dr. Ochoa in the outpatient setting currently admitted under general surgery services for incarcerated umbilical hernia repair. Patient is postoperative robotic assisted da Naun laparoscopic repair of initial incarcerated umbilical hernia with mesh. Patient was held over as patient had difficulty weaning oxygen having some shortness of breath and being monitored overnight. Pulmonary consulted placed the patient on breathing treatments and also ordered up a CTA. Patient has a past medical history of gastroesophageal reflux disease, hyperlipidemia, osteoarthritis, umbilical hernia, former smoker, drinks alcohol at least 3 times a week, obesity with a BMI of 32.7. Patient had a BMP done yesterday showed a sodium of 143 with a potassium of 4.6, BUN was 22 and creatinine was 0.72. LFTs within normal limits. Patient this morning was currently on 2 L which has been weaned off and currently maintaining oxygen saturations above 90% on room air. Patient with an incentive spirometer at the bedside encouraged to continue using at least 10 times every hour while awake. He has been having cold symptoms that has not been getting better. Patient was evaluated by pulmonary. Chest x-ray also shows left basilar linear atelectasis or developing infiltrate. REVIEW OF SYSTEMS: CONSTITUTIONAL: No fever, no malaise, no fatigue. HEENT: No recent visual problems or hearing problems. Reports of sore throat. CARDIOVASCULAR: No chest pain, orthopnea, PND, no palpitations, no syncope. PULMONARY: Reported shortness of breath, with cough that has been ongoing for the last month , no hemoptysis. GASTROINTESTINAL: No diarrhea, no nausea, no vomiting, no abdominal pain. Reports passing gas with no bowel movement as of yet NEUROLOGICAL: No headaches, no weakness, no numbness. HEMATOLOGICAL: Denies any bleeding or petechiae. GENITOURINARY: Denies any burning micturition, frequency, or urgency. MUSCULOSKELETAL/RHEUMATOLOGICAL: Denies any joint pain, swelling, or any muscle pain. ENDOCRINE: Denies any polyuria or polydipsia. The rest of the 14-point review of systems is negative. PHYSICAL EXAMINATION: GENERAL: The patient is alert and oriented x3, . Well developed, well nourished. Obese HEENT: Pupils are round and equally reacting to light. EOMI. No scleral icterus. No conjunctival pallor. Normocephalic, atraumatic. No pharyngeal erythema. No thyromegaly. CARDIOVASCULAR: S1 and S2 present. No murmurs, rubs, or gallops. PULMONARY: Diminished breath sounds bilaterally otherwise chest is clear to auscultation, no wheezing or crackles. ABDOMEN: Soft, tender on palpation obese,, nondistended, normoactive bowel sounds. No palpable organomegaly. MUSCULOSKELETAL: No joint swelling or deformity. EXTREMITIES: No cyanosis, clubbing, or pedal edema. NEUROLOGICAL: Gross neurological examination did not reveal any focal deficits. SKIN: No rashes. Assessment: Status post robotic assisted incarcerated umbilical hernia repair with mesh on 05/09/2023 History of umbilical hernia Shortness of breath with acute hypoxic respiratory failure likely atelectasis, improved currently on room air History of GERD Hyperlipidemia History of osteoarthritis History of possible viral illness over the last month with cough and congestion Obesity with a BMI of 32.7 Former smoker Alcohol use GI prophylaxis DVT prophylaxis Full code Plan: Patient was admitted overnight status post robotic assisted incarcerated umbilical hernia repair with Dr. Schmidt on 05/09/2023 Patient had some shortness of breath requiring oxygen currently has been weaned off oxygen tolerating and maintaining oxygen saturations above 90% Patient evaluated by pulmonary and chest x-ray showed most likely atelectasis versus infiltrate and underwent CTA which showed no evidence of PE, no evidence of thoracic aneurysm or dissection and probable atelectasis in the lower lobes with hepatic steatosis Encouraged incentive spirometer use at least 10 times every hour while awake. Ordered procalcitonin which is pending at this time although suspicion for infiltrate is low cannot entirely exclude and patient has also been reporting he has had cold-like symptoms off and on since March. Encouraged increase activity as tolerated Patient to follow-up with primary care provider on discharge as well as surgery when scheduled Patient is medically stable for discharge once cleared by general surgery Thank you kindly for this consultation. We will continue to follow with general surgery during hospitalization The impression and plan of care has been dictated by Pattie Conley, Nurse Practitioner as directed. Dr. Dinesh MD I have performed a history and examination and MDM of this patient, discussed the same with the dictator, and agree with the dictator's assessment and plan as written ,documented as a scribe. Based on total visit time, I have performed more than 50% of the visit. Past Medical History Past Medical History: GERD/Reflux, Hyperlipidemia, Osteoarthritis (OA) Additional Past Medical History / Comment(s): occasional bleeding with stools and mid abd especially if not eating regularly. umbilical hernia History of Any Multi-Drug Resistant Organisms: None Reported Past Surgical History: Orthopedic Surgery Additional Past Surgical History / Comment(s): ,colonoscopy,wisdom teeth, screw to navicular bone of rt foot, umbilical hernia repair Past Anesthesia/Blood Transfusion Reactions: No Reported Reaction Additional Past Anesthesia/Blood Transfusion Reaction / Comm: Low SpO2 after surgery required overnight stay and high flow oxygen Past Psychological History: No Psychological Hx Reported Smoking Status: Former smoker Past Alcohol Use History: Daily Additional Past Alcohol Use History / Comment(s): quit smoking 1998, smoked for approx 10yrs. 3-8 drinks 3 times a week. Last drink was 05/08/23 Past Drug Use History: None Reported - Past Family History Mother Additional Family Medical History / Comment(s): heart problems,cabg Brother(s) Family Medical History: Myocardial Infarction ([place]) Additional Family Medical History / Comment(s): cardiac stents Father Family Medical History: Cancer Additional Family Medical History / Comment(s): vocal cords Medications and Allergies Home Medications Medication Instructions Recorded Confirmed Type Rosuvastatin Calcium 20 mg PO HS 04/30/23 05/09/23 History Omeprazole [PriLOSEC] 40 mg PO DAILY #14 cap 05/02/23 05/09/23 Rx Multivit,Calc,Min/FA/K1/Lycop 1 each PO DAILY 05/03/23 05/09/23 History [One-A-Day Men's Complete Tab] Acetaminophen Tab [Tylenol Tab] 1,000 mg PO Q6HR PRN #30 tablet 05/09/23 Rx Cyclobenzaprine [Flexeril] 10 mg PO TID #30 tab 05/09/23 Rx Ibuprofen [Motrin] 600 mg PO Q8HR PRN #30 tab 05/09/23 Rx Simethicone [Gas-X] 125 mg PO AC-TID PRN #20 capsule 05/09/23 Rx Allergies Allergy/AdvReac Type Severity Reaction Status Date / Time No Known Allergies Allergy Verified 05/09/23 14:11 Physical Exam Vitals: Vital Signs Temp Pulse Pulse Pulse Resp BP BP 05/10/23 08:22 05/10/23 07:53 05/10/23 07:30 05/10/23 07:27 97.5 F L 67 20 136/84 05/10/23 02:00 98.7 F 90 16 127/65 05/09/23 21:55 77 127/65 05/09/23 21:40 94 128/67 05/09/23 21:25 91 129/75 05/09/23 21:13 18 05/09/23 21:10 100 134/78 05/09/23 20:55 89 133/84 05/09/23 20:40 98 136/84 05/09/23 20:30 16 05/09/23 20:25 85 148/84 05/09/23 20:10 98.7 F 95 18 148/84 05/09/23 19:45 86 18 123/67 05/09/23 19:30 91 18 117/69 05/09/23 19:12 86 18 142/69 05/09/23 18:57 77 18 130/66 05/09/23 18:42 74 18 127/62 05/09/23 18:27 75 18 142/70 05/09/23 18:12 97.4 F L 95 15 162/75 05/09/23 16:47 75 16 149/88 05/09/23 14:23 98.0 F 65 18 182/86 Pulse Ox 05/10/23 08:22 93 L 05/10/23 07:53 93 L 05/10/23 07:30 93 L 05/10/23 07:27 91 L 05/10/23 02:00 92 L 05/09/23 21:55 92 L 05/09/23 21:40 91 L 05/09/23 21:25 89 L 05/09/23 21:13 95 05/09/23 21:10 88 L 05/09/23 20:55 89 L 05/09/23 20:40 85 L 05/09/23 20:30 05/09/23 20:25 92 L 05/09/23 20:10 92 L 05/09/23 19:45 91 L 05/09/23 19:30 92 L 05/09/23 19:12 90 L 05/09/23 18:57 92 L 05/09/23 18:42 93 L 05/09/23 18:27 92 L 05/09/23 18:12 94 L 05/09/23 16:47 95 05/09/23 14:23 94 L Intake and Output 05/09/23 05/10/23 05/10/23 22:59 06:59 14:59 Intake Total 1350 Output Total 10 Balance 1340 Intake: IV 750 Oral 600 Output: Estimated Blood Loss 10 Other: Voiding Method Toilet # Voids 3 Weight 103.3 kg Results CBC & Chem 7: 05/09/23 14:47 Labs: Abnormal Lab Results - Last 24 Hours (Table) 05/09/23 Range/Units 14:47 Chloride 110 H (98-107) mmol/L Carbon Dioxide 21 L (22-30) mmol/L BUN 22 H (9-20) mg/dL
[2023-05-10 14:01] VITALS: BP 133/68; PULSE 67; TEMP 97.9
== END 2023-05-10 15:49 | disposition home or self-care (01) ==
LOC: OR 13:09 → 5NMEDONC 17:58 → OR 19:15 → 5NMEDONC 19:15 → INTOOBSV 19:15 → UNDODISIN 05-10 15:49
PROVIDERS: ADMIT Surgery Plastic and Reconstructive Surgery; ATTEND Surgery Plastic and Reconstructive Surgery
DX: K42.0 Umbilical hernia with obstruction, without gangrene (principal); G89.18 Other acute postprocedural pain; J96.01 Acute respiratory failure with hypoxia; J98.11 Atelectasis; K21.9 Gastro-esophageal reflux disease without esophagitis; E78.5 Hyperlipidemia, unspecified; I10 Essential (primary) hypertension; F10.90 Alcohol use, unspecified, uncomplicated; M19.90 Unspecified osteoarthritis, unspecified site; E66.09 Other obesity due to excess calories; Z68.32 Body mass index [BMI] 32.0-32.9, adult; Z87.891 Personal history of nicotine dependence
CPT/HCPCS: 49592; S2900; 64999; 71045; 71275; 80053; 84145; 88302; 94760; 96374; 96376

== ENCOUNTER → 2023-07-03 | Day surgery (SDC) | payer OTHER ==
[2023-07-01 16:00] VITALS: BMI 31.5
[~2023-07-03] MED LIST changes: -HYDROmorphone 0.5 MG/0.5 ML SYRINGE IVP PRN; +LIDOCAINE 1% (10MG/ML) FOR IV START INTRADERMA PRN; -ONDANSETRON 4 MG/2 ML VIAL IVP PRN; +PROPOFOL 10 MG/ML 20 ML VIAL IV ONE
--- NOTE | 2023-07-03 07:34 | P.GSHP ---
History of Present Illness H&P Date: 07/03/23 CHIEF COMPLAINT: Colon screen HISTORY OF PRESENT ILLNESS: The patient is a 58-year-old male who presents for colon screen. Lower endoscopy was offered for further evaluation and management. PAST MEDICAL HISTORY: Please see list. PAST SURGICAL HISTORY: Please see list. MEDICATIONS: Please see list. ALLERGIES: Please see list. SOCIAL HISTORY: No illicit drug use FAMILY HISTORY: No reports of Crohn disease or ulcerative colitis. REVIEW OF ORGAN SYSTEMS: CONSTITUTIONAL: No reports of fevers or chills. PHYSICAL EXAM: VITAL SIGNS: Stable GENERAL: Well-developed pleasant in no acute distress. HEENT: No scleral icterus. Extraocular movements grossly intact. Moist buccal mucosa. NECK: Supple without lymphadenopathy. CHEST: Unlabored respirations. Equal bilateral excursions. CARDIOVASCULAR: Regular rate and rhythm. Distal 2+ pulses. ABDOMEN: Soft, nontender, nondistended. MUSCULOSKELETAL: No clubbing, cyanosis, or edema. ASSESSMENT: 1. Colon screen. PLAN: 1. Recommend proceeding with a lower endoscopy Past Medical History Past Medical History: GERD/Reflux, Hyperlipidemia, Osteoarthritis (OA) Additional Past Medical History / Comment(s): occasional bleeding with stools and mid abd especially if not eating regularly. History of Any Multi-Drug Resistant Organisms: None Reported Past Surgical History: Orthopedic Surgery Additional Past Surgical History / Comment(s): ,colonoscopy,wisdom teeth, screw to navicular bone of rt foot, umbilical hernia repair Past Anesthesia/Blood Transfusion Reactions: No Reported Reaction Additional Past Anesthesia/Blood Transfusion Reaction / Comment(s): Low SpO2 after surgery required overnight stay and high flow oxygen. No hx of blood transfusion. Smoking Status: Former smoker - Past Family History Mother Additional Family Medical History / Comment(s): heart problems,cabg Brother(s) Family Medical History: Myocardial Infarction ([place]) Additional Family Medical History / Comment(s): cardiac stents Father Family Medical History: Cancer Additional Family Medical History / Comment(s): vocal cords Medications and Allergies Home Medications Medication Instructions Recorded Confirmed Type Rosuvastatin Calcium 20 mg PO HS 04/30/23 07/01/23 History Multivit,Calc,Min/FA/K1/Lycop 1 each PO QAM 05/03/23 07/01/23 History [One-A-Day Men's Complete Tab] Aleve (Unknown Dose) 1 dose PO Q8H PRN 07/01/23 History Omeprazole [PriLOSEC] 40 mg PO QAM PRN 07/01/23 07/01/23 History Allergies Allergy/AdvReac Type Severity Reaction Status Date / Time No Known Allergies Allergy Verified 07/01/23 15:21
[2023-07-03] MEDS: LACTATED RINGERS 1,000 ML IV SCH (10:14)
[2023-07-03 10:43] VITALS: RESP 16; TEMP 97.4
--- NOTE | 2023-07-03 11:50 | P.PCN ---
Date of Procedure: 07/03/23 Description of Procedure: PREOPERATIVE DIAGNOSIS: Gastrointestinal bleeding POSTOPERATIVE DIAGNOSIS: Colitis, ascending colon Transverse colon adenoma Splenic flexure polyps Sigmoid diverticulosis Internal hemorrhoid, grade 2 OPERATION: Colonoscopy to the ileocecal valve and appendiceal orifice, cecum Colonoscopy with hot snare polypectomy Colonoscopy with cold forceps biopsy Colonoscopy with ablation SURGEON: Cathy Barnes MD. ANESTHESIA: MAC. INDICATIONS: The patient is an 58-year-old male who presents gastrointestinal bleeding worsening the past several months. Benefits and risks were described and informed consent was obtained. DESCRIPTION OF PROCEDURE: The patient had undergone Sutab prep. The patient had been brought into the operating room and laid in the left lateral decubitus position. After adequate intravenous sedation, the rectum was examined with 2% lidocaine jelly. The prostate was unremarkable. External hemorrhoids were encountered. The rectal tone was within normal limits. No lesions were palpated in the rectal vault. An Olympus colonoscope was advanced until the cecum, ileocecal valve and appendiceal orifice were clearly viewed. The prep was fair. Few sigmoid diverticulosis was encountered. Colonic polyps were found and removed. Focal colitis was found. Retroflexion of the scope demonstrated grade 2 internal hemorrhoids with inflammation. The colon was desufflated. The patient had tolerated the procedure well. Withdrawal time was over 6 minutes. FINDINGS: Aronchick preparation quality scale 2 (1-5) Internal hemorrhoids, grade 2 with recent inflammation External hemorrhoids, grade 1 recent thrombosis, 3 mm. No arteriovenous malformations. Sigmoid diverticulosis, few Removal of 2 polyps: - Snare polypectomy at mid transverse colon, 5 mm tubulovillous adenoma - Ablation at proximal transverse colon, 3 mm flat villous adenoma - Cold forceps biopsy ascending colon for focal colitis - Cold forceps biopsy splenic flexure for inflammatory polyps Cecum/ascending colitis with biopsies obtained RECOMMENDATIONS: Await biopsies for treatment for colitis. Repeat colonoscopy 3 years, 2026 Plan - Discharge Summary Discharge Rx Participant: No New Discharge Prescriptions: Continue Omeprazole [PriLOSEC] 40 mg PO QAM PRN PRN Reason: reflux Rosuvastatin Calcium 20 mg PO HS Multivit,Calc,Min/FA/K1/Lycop [One-A-Day Men's Complete Tab] 1 each PO QAM Aleve (Unknown Dose) 1 dose PO Q8H PRN PRN Reason: Pain Discharge Medication List Rosuvastatin Calcium 20 mg PO HS 04/30/23 [History] Multivit,Calc,Min/FA/K1/Lycop [One-A-Day Men's Complete Tab] 1 each PO QAM 05/03/23 [History] Aleve (Unknown Dose) 1 dose PO Q8H PRN 07/01/23 [History] Omeprazole [PriLOSEC] 40 mg PO QAM PRN 07/01/23 [History] Follow up Appointment(s)/Referral(s): Cathy Barnes MD [STAFF PHYSICIAN] - 08/06/23 9:15 am Patient Instructions/Handouts: Diverticulosis (DC), Colorectal Polyps (GEN), Colitis (ED), Hemorrhoids (DC) Activity/Diet/Wound Care/Special Instructions: Repeat colonoscopy 3 years, 2026 Discharge Disposition: HOME SELF-CARE
[2023-07-03 12:29] VITALS: BP 132/69; PULSE 71
== END | disposition home or self-care (01) ==
LOC: ORWHC2ENDO 09:47
PROVIDERS: ATTEND Surgery Plastic and Reconstructive Surgery
DX: D12.2 Benign neoplasm of ascending colon (principal); D12.3 Benign neoplasm of transverse colon; K57.31 Diverticulosis of large intestine without perforation or abscess with bleeding; K21.9 Gastro-esophageal reflux disease without esophagitis; E78.5 Hyperlipidemia, unspecified; M19.90 Unspecified osteoarthritis, unspecified site; K64.1 Second degree hemorrhoids; K64.4 Residual hemorrhoidal skin tags; K52.9 Noninfective gastroenteritis and colitis, unspecified; Z87.891 Personal history of nicotine dependence; Z79.899 Other long term (current) drug therapy
CPT/HCPCS: 88305; 45380; 45385; J2704

== ENCOUNTER → 2023-07-10 | Outpatient (CLI) | payer OTHER ==
--- NOTE | 2023-07-10 08:50 | US ---
EXAMINATION TYPE: US gallbladder DATE OF EXAM: 07/10/2023 COMPARISON: Abdominal ultrasound 11/29/2016 CLINICAL INDICATION: Male, 58 years old with history of R10.11 RIGHT UPPER QUADRANT PAIN; Pain. TECHNIQUE: Multiple sonographic images of the right upper quadrant are obtained. FINDINGS: EXAM MEASUREMENTS: Liver Length: 19.9 cm Gallbladder Wall: 0.2 cm CBD: 0.3 cm Right Kidney: 10.9 x 5.7 x 5.8 cm Pancreas: Tail obscured by overlying bowel gas. Remaining portions appear unremarkable. Liver: Enlarged in size. Diffusely hyperechoic. Right lobe simple appearing cyst- 1.7 x 1.5 x 0.9 cm . Hypoechoic lesion adjacent to GB consistent with focal fatty sparing again = 2.2 x 1.6 cm. No inte rnal color flow in this region. Gallbladder: No stones or wall thickening Evidence for sonographic Ramos's sign: neg CBD: wnl Right Kidney: No hydronephrosis or masses seen IMPRESSION: Hepatomegaly and moderate hepatic steatosis.
== END | disposition home or self-care (01) ==
LOC: RADUSWWP 07:02
PROVIDERS: ATTEND Surgery Plastic and Reconstructive Surgery
DX: K76.0 Fatty (change of) liver, not elsewhere classified (principal); R16.0 Hepatomegaly, not elsewhere classified
CPT/HCPCS: 76705